=== PATIENT | female | born 1990 | race Caucasian/White ===

== ENCOUNTER 2020-11-06 08:06 | Outpatient (REF) | payer OTHER, SELFPAY ==
[2020-11-06 10:41] LABS: MANUAL DIFF FLAG NO
[2020-11-06 10:48] LABS: Basophils Absolute Auto 0.1 X10*3/uL (0.0-0.2); Eosinophils Absolute Auto 0.2 X10*3/uL (0.0-0.4); Eosinophils Percent Auto 1.9 % (0-4); Hematocrit 39.1 % (37-47); Hemoglobin 12.7 g/dl (12.0-16.0); Imm Gran Abs Auto 0.02 X10*3/uL (0.00-0.03); Imm Gran Pct Auto 0.3 % (0.0-0.4); Lymphocytes Absolute Auto 2.9 X10*3/uL (1.2-4.9); Lymphocytes Percent Auto 37.4 % (20-40); Mean Corpuscular HGB Conc 32.5 g/dl (31.0-35.0); Mean Corpuscular Hemoglobin 30.6 pg (27.0-33.0); Mean Corpuscular Volume 94.2 fL (80-98); Mean Platelet Volume 11.9 fL (9.4-12.3); Monocytes Absolute Auto 0.5 X10*3/uL (0.1-1.2); Monocytes Percent Auto 6.9 % (2-11); Neutrophils Absolute Auto 4.1 X10*3/uL (2.0-8.3); Neutrophils Percent Auto 52.5 % (45-73); Platelet Count 182 X10*3/uL (160-400); Red Blood Count 4.15 X10*6/uL (4.20-5.50); Red Cell Distribution Width 12.7 % (11.0-16.0); White Blood Count 7.7 X10*3/uL (4.8-10.8)
[2020-11-06 11:09] LABS: Glucose Urine UA NEG (NEG); Leukocyte Esterase Urine NEG (NEG); Nitrite Urine NEG (NEG); Specific Gravity - Urine 1.025 (1.005-1.025); Urine Blood NEG (NEG); Urine Ketones NEG (NEG); Urine Protein NEG (NEG-TRACE)
[2020-11-06 11:19] LABS: Appearance Urine HAZY; Color Urine YELLOW
[2020-11-06 11:30] LABS: TSH reflex Free T4 1.45 mIU/mL (0.32-4.0)
[2020-11-06 11:34] LABS: Alanine Aminotransferase 14 U/L (0-31); Albumin Level 4.5 g/dL (3.5-5.0); Alkaline Phosphatase 40 U/L (39-117); Anion Gap 11 (12-20); Aspartate Amino Transferase 17 U/L (5-31); Bilirubin Total 0.4 mg/dL (0.0-1.0); Blood Urea Nitrogen 9 mg/dL (9-16); Calcium 9.4 mg/dL (8.4-10.2); Carbon Dioxide 29 mmol/L (22-29); Chloride 105 mmol/L (96-108); Cholesterol 198 mg/dL; Estimated Glomerular Filt Rate > 60; Glucose Fasting 92 mg/dL (60-99); HDL Cholesterol 83 mg/dL; LDL Cholesterol Calculated 107 mg/dl; Potassium 4.3 mmol/l (3.3-5.1); Sodium 141 mmol/L (135-145); Total Protein 7.4 g/dL (6.5-8.0); Triglycerides 40 mg/dL
== END 2020-11-06 08:07 | disposition home or self-care (01) ==
LOC: HO.WFDLDS 08:06
PROVIDERS: Visit Provider Family Medicine
DX: Z00.00 Encounter for general adult medical examination without abnormal findings (principal); Z86.2 Personal history of diseases of the blood and blood-forming organs and certain disorders involving the immune mechanism
CPT/HCPCS: 36415; 80053; 80061; 81003; 84443; 85025

== ENCOUNTER 2020-11-16 09:55 | Outpatient (REF) | payer OTHER, SELFPAY ==
[2020-11-20 23:42] LABS: HPV mRNA E6/E7 Not Detected (Not Detected)
== END 2020-11-16 09:56 | disposition home or self-care (01) ==
LOC: HO.LAB 09:55
PROVIDERS: PCP Family Medicine; Visit Provider Advanced Practice Midwife
DX: Z01.419 Encounter for gynecological examination (general) (routine) without abnormal findings (principal); Z20.2 Contact with and (suspected) exposure to infections with a predominantly sexual mode of transmission
CPT/HCPCS: 36415; 87624; 87625; 88141; 88142

== ENCOUNTER → 2021-11-19 08:09 | Outpatient (BNVA) | payer OTHER, SELFPAY | PROVIDERS: PCP Family Medicine; Visit Provider Advanced Practice Midwife ==

== ENCOUNTER 2021-12-03 07:57 | Outpatient (REF) | payer OTHER, SELFPAY ==
[2021-12-03 11:29] LABS: MANUAL DIFF FLAG NO
[2021-12-03 11:41] LABS: Basophils Absolute Auto 0.1 X10*3/uL (0.0-0.2); Basophils Percent Auto 1.1 % (0-2); Eosinophils Absolute Auto 0.2 X10*3/uL (0.0-0.4); Eosinophils Percent Auto 1.9 % (0-4); Hematocrit 38.4 % (37.0-47.0); Hemoglobin 12.6 g/dl (12.0-16.0); Imm Gran Abs Auto 0.02 X10*3/uL (0.00-0.03); Imm Gran Pct Auto 0.2 % (0.0-0.4); Lymphocytes Absolute Auto 3.4 X10*3/uL (1.2-4.9); Lymphocytes Percent Auto 41.2 % (20-40); Mean Corpuscular HGB Conc 32.8 g/dl (31.0-35.0); Mean Corpuscular Hemoglobin 30.4 pg (27.0-33.0); Mean Corpuscular Volume 92.8 fL (80.0-98.0); Mean Platelet Volume 11.4 fL (9.4-12.3); Monocytes Absolute Auto 0.6 X10*3/uL (0.1-1.2); Monocytes Percent Auto 6.6 % (2-11); Neutrophils Absolute Auto 4.1 x10*3/uL (2.0-8.3); Platelet Count 207 X10*3/uL (160-400); Red Blood Count 4.14 X10*6/uL (4.20-5.50); Red Cell Distribution Width 12.7 % (11.0-16.0); White Blood Count 8.3 X10*3/uL (4.8-10.8)
[2021-12-03 11:53] LABS: Alanine Aminotransferase 14 U/L (0-31); Albumin Level 4.5 g/dL (3.5-5.0); Alkaline Phosphatase 39 U/L (39-117); Anion Gap 12 (12-20); Aspartate Amino Transferase 16 U/L (5-31); Bilirubin Total 0.8 mg/dL (0.0-1.0); Blood Urea Nitrogen 11 mg/dL (9-16); Calcium 9.8 mg/dL (8.4-10.2); Carbon Dioxide 28 mmol/L (22-29); Chloride 103 mmol/L (96-108); Cholesterol 201 mg/dL; Estimated Glomerular Filt Rate > 60; Glucose Fasting 90 mg/dL (60-99); HDL Cholesterol 74 mg/dL; LDL Cholesterol Calculated 112 mg/dl; Potassium 4.3 mmol/L (3.3-5.1); Sodium 139 mmol/L (135-145); Total Protein 7.6 g/dL (6.5-8.0); Triglycerides 76 mg/dL
[2021-12-03 12:01] LABS: Appearance Urine HAZY; Color Urine YELLOW; Glucose Urine UA NEG (NEG); Leukocyte Esterase Urine NEG (NEG); Nitrite Urine NEG (NEG); PH 5.5 (5.0-8.0); Specific Gravity - Urine >= 1.030 (1.005-1.025); Urine Blood TRACE (NEG); Urine Ketones NEG (NEG); Urine Protein 1+ MG/DL (NEG-TRACE)
[2021-12-03 12:23] LABS: TSH reflex Free T4 1.69 uIU/mL (0.32-4.0)
[2021-12-03 12:38] LABS: RBC Urine 0-2 /HPF (0); Squamous Epithelial Cell Urine 2+ /LPF; WBC Urine 0 /HPF (0-4)
[2021-12-03 12:39] LABS: Bacteria Urine 2+ /LPF
== END 2021-12-03 07:58 | disposition home or self-care (01) ==
LOC: HO.WFDLDS 07:57
PROVIDERS: Visit Provider Family Medicine
DX: Z00.00 Encounter for general adult medical examination without abnormal findings (principal)
CPT/HCPCS: 36415; 80053; 80061; 81001; 81003; 84443; 85025

== ENCOUNTER 2022-11-24 13:00 | Outpatient (REF) | payer OTHER, SELFPAY ==
[2022-11-27 00:39] LABS: HPV mRNA E6/E7 rflx Not Detected (Not Detected)
== END 2022-11-24 13:01 | disposition home or self-care (01) ==
LOC: HO.LNP 13:00
PROVIDERS: PCP Family Medicine; Visit Provider Advanced Practice Midwife
DX: Z01.419 Encounter for gynecological examination (general) (routine) without abnormal findings (principal); N64.4 Mastodynia; N39.3 Stress incontinence (female) (male)
CPT/HCPCS: 87624; 88142

== ENCOUNTER 2023-12-11 13:08 | Outpatient (AMB) | payer OTHER, SELFPAY ==
--- NOTE | 2023-12-11 13:10 | A.OFFVIS_ITS ---
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 Doing well with concerns: left breast pain x 6 months, deep in the 03:00 position. Denies any injury to the area, or any other surgery to the left breast. She tries to eat healthy and stays active with exercise. In active . Regular monthly menses. Currently is sexually active with , vasectomy as form of control. She denies vaginal itching and irritation. Family history of breast cancer maternal grandmother and mother. Last pap smear 2022, negative. [facility] Medical History FH: breast cancer in first degree relative Hypotension Surgical History No pertinent past surgical history Family History Maternal Grandmother Breast CA Mother Breast CA Social History Housing: House Alcohol intake: current Patient Tobacco Use Status: Never used Tobacco e-Cigarette/Vaping Use: Never Used Second Hand Smoke Exposure: No service: Yes Current occupational status: employed Current occupation: [employer] Cognitive needs: No Hearing needs: No Vision needs: No Female Reproductive History Menstrual Age of Menarche: 17 Date of last menstrual period: 12/11/23 control method: permanent sterilization and other (partner has a vasectomy) Total pregnancies: 3 Full term: 3 Number of Living Children: 3 Date of last pap smear: 11/25/22 Review of Systems Const All systems reviewed & are unremarkable except as noted in HPI and below Reports as per HPI Eyes Reports no additional complaints ENT Reports no additional complaints Card Reports no additional complaints Resp Reports no additional complaints GI Reports as per HPI and Reports no additional complaints Reports as per HPI Musc Reports no additional complaints Skin/Breast Reports as per HPI Neuro Reports no additional complaints Psych Reports no additional complaints Endo Reports no additional complaints Matt/Lymph Reports no additional complaints Aller/Immun Reports no additional complaints Physical Exam Vital Signs: Last Vital Signs BP 106/54 L 12/11/23 13:14 BMI result Body Mass Index 19.0 Const General: cooperative, healthy appearing, no acute distress, well developed and alert Orientation/consciousness: patient oriented x3 HEENT Head: Yes normal to inspection Eyes General: appearance normal, both eyes and all related structures Neck Neck: Yes normal visual inspection Thyroid: Thyroid normal Chest Other: Slight asymmetry left breast is larger patient reports that is her norm. Chest palpation & inspection: normal inspection of the chest and other (no puckering, dimpling, peau de orange, retraction, discharge, masses) Breast/axilla inspection: normal inspection of the breasts Breast/axilla palpation: normal palpation of the breasts Resp Effort & Inspection: normal respiratory effort GI Inspection: Yes normal to inspection Palpation (GI): Soft to palpation Rectal Exam - Female: deferred General: Yes bladder normal to palpation External Female Exam: normal external appearance and normal appearance of the urethra Speculum Exam - Vagina: normal appearance of the vagina, normal palpation, normal vaginal discharge, vaginal bleeding and other (Tampon in place on left side) Speculum Exam - Cervix: normal appearance of the cervix and normal palpation Bimanual exam- vagina & uterus: normal bimanual exam, normal palpation, uterine size normal, bladder normal to palpation, normal palpation and non-tender Bimanual Exam- Adnexa, other: no masses OB/external & speculum: vaginal bleeding Skin General skin exam: no rashes or lesions noted Rashes: no rashes Neuro General: patient oriented x3 Cognition (Neuro): normal cognition Extrem General: Yes normal to inspection Psych Attitude: cooperative Thought process: Normal thought process present Assessment & Plan Assessment & Plan (1) Encounter for well woman exam with routine gynecological exam: Code(s): Z01.419 - Encounter for gynecological examination (general) (routine) without abnormal findings (2) Breast pain, left: Code(s): N64.4 - Mastodynia Plan Discussed: Current recommendations for pap smears per ASCCP guidelines. Breast awareness and periodic breast exams. Plan left breast ultrasound and bilateral diagnostic mammogram. Follow-up office to discuss test results. If biopsy or further evaluation is needed radiology department will reach out for further appointments. If she is any questions or concerns she can call here to discuss them. Maintain a healthy lifestyle including a well balanced diet and routine exercise. Patient verbalizes understanding and agrees to the plan of care. She was given opportunity to ask questions and all questions were answered to the best of my ability. 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 This note is constructed using voice recognition software. While every effort has been made to ensure accuracy, security dispatcher errors may have been included. Orders: Orders MM tomosynthesis diagnostic BI Today N64.4 - Mastodynia, Z12.31 - Encounter for screening mammogram for malignant neoplasm of breast US breast LT complete Today N64.4 - Mastodynia Coding Level of Care Code Est Pt Prev Care 18-39y(42189) Diagnoses Encounter for well woman exam with routine gynecological exam Z01.419 Breast pain, left N64.4
[2023-12-11 13:14] VITALS: BP 106/54; BMI 19.0
== END 2023-12-11 13:52 | disposition home or self-care (01) ==
PROVIDERS: PCP Family Medicine; Visit Provider Advanced Practice Midwife
DX: Z01.419 Encounter for gynecological examination (general) (routine) without abnormal findings (principal); N64.4 Mastodynia
CPT/HCPCS: 99395

== ENCOUNTER → 2023-12-11 13:08 | Outpatient (BNVA) | payer OTHER, SELFPAY | PROVIDERS: PCP Family Medicine; Visit Provider Advanced Practice Midwife ==

== ENCOUNTER 2024-01-08 08:34 | Outpatient (REF) | payer OTHER, SELFPAY ==
--- NOTE | ~2024-01-08 | MM_ITS ---
EXAMINATION: MM DIAGNOSTIC DIGITAL BREAST TOMOSYNTHESIS, BILATERAL US BREAST LIMITED, LEFT MAMMOGRAPHY: CLINICAL INFORMATION: 33-year-old female complaining of left breast pain 3:00 axis, mid to posterior one third. COMPARISON: Mammography: None. Baseline exam. TECHNIQUE: Digital breast tomosynthesis is performed in both the craniocaudal and mediolateral oblique views along with computer-aided detection (CAD). Synthesized 2D images are generated from the tomosynthesis. A second full-field right MLO was provided for improved anterior compression. FINDINGS: The breasts are extremely dense, which lowers the sensitivity of mammography (ACR BI-RADS breast composition Category d). There are no significant masses, abnormal calcifications, or other abnormalities. The area of pain in the left breast 3:00 axis has been marked by the technologist. There is no definite underlying mass or other abnormality which can be distinguished from the extremely dense breast parenchyma. There is no skin or axillary abnormality. ULTRASOUND: CLINICAL INFORMATION: Pain left breast 3:00 axis. COMPARISON: None TECHNIQUE: Targeted sonographic evaluation was performed using a high frequency linear transducer. Attention was given to the upper outer quadrant of the left breast. Selected archived documentation. FINDINGS: LEFT BREAST: There is extremely dense breast parenchyma noted. No suspicious mass is seen. There is no pathologic acoustic shadowing. No cystic abnormalities. No ultrasonographic correlate to the region of left breast pain is identified. MM/MM tomosynthesis diagnostic BI IMPRESSION: There are no findings in either breast suspicious for malignancy. Region of left breast pain 3:00 axis shows no mammographic or ultrasonographic correlate. Recommend clinical management. OVERALL ASSESSMENT: Mammography: BI-RADS 1 - Negative Ultrasound: BI-RADS 1 - Negative RECOMMENDATION: 1. Patient should be managed based on the clinical impression. 2. Otherwise, routine annual screening mammography beginning at age 40. Results were provided to the patient at time of visit by the technologist.
== END 2024-01-08 08:35 | disposition home or self-care (01) ==
LOC: HO.MAMMO 08:34
PROVIDERS: PCP Family Medicine; Visit Provider Advanced Practice Midwife
DX: N64.4 Mastodynia (principal)
CPT/HCPCS: 76642; 77062; 77066

== ENCOUNTER → 2024-01-08 08:37 | Outpatient (BNV) | payer OTHER, SELFPAY | PROVIDERS: PCP Family Medicine; Visit Provider Radiology Diagnostic Radiology | DX: N64.4 Mastodynia (principal) | CPT/HCPCS: 76642; 77062; 77066 ==

== ENCOUNTER 2024-11-25 15:43 | Outpatient (AMB) | payer OTHER, SELFPAY ==
--- OUTSIDE RECORDS SUMMARY | 2024-11-25 15:46 | XMS_ITS | Encounter Summary ---
Author Organization [facility] Address [address] [place] [address] Phone Care Team Providers Care Scheme Technician Name Role Phone Mike Rodas MD Primary Care Provider [phone] Encounter Details Date Type Department Care Team (Late st Contact Info) Description 10/11/2012 Documentation [facility] [place] Family Medicine [address] [place], [place] [id number] Family Medicine, Physician [address], [place] [phone] Social History Tobacco Use Types Packs/Day Years Used Date Smoking Tobacco: Never Assessed Comments Unknown Sex and Gender Information Value Date Recorded Sex Assigned at Not on file Legal Sex Female 4:43 PM EDT Gender Identity Not on file Sexual Orientation Not on file documented as of this encounter Plan of Treatment Not on file documented as of this encounter Visit Diagnoses Not on filedocumented in this encounter Care Teams Scheme Technician Relationship Specialty Start Date End Date Mike Rodas MD [address] [place] [address] PCP - General 06/05/17 12/17/22 documented as of this encounter
--- OUTSIDE RECORDS SUMMARY | 2024-11-25 15:46 | XMS_ITS | Continuity of Care Document ---
Author Name [facility] Organization [facility] Care Team Providers Care Slope Hoist Operator Name Role Phone [facility] Unavailable Unavailable Medications Combined list of outpatient medications from Department of Defense and Veterans Affairs facilities.Medications provided include 1) outpatient medications from the last 15 months, and 2) patient-reported medications. Medication Details Route Status Patient Instructions Prescription Expires Prescription Number Last Dispense Date Ordering Provider Order Date Order Qty Source betamethaso ne dipropionat e 0.05% topical cream betameth asone dipropio arcenio 0.05% topical cream Start Date: 04/11/21 Status: Ordered Ordered No Facilit y Access chlorhexidi ne 0.12% mucous membrane liquid chlorhex idine 0.12% mucous membrane liquid Start Date: 11/02/20 Status: Ordered Ordered No Facilit y Access doxycycline 20 mg oral tablet 0 total refill(s ) Ordered No Facilit y Access predniSONE 10 mg oral tablet predniSO NE 10 mg oral tablet Start Date: 04/11/21 Status: Ordered Ordered No Facilit y Access valACYclovi r 500 mg oral tablet 3 total refill(s ) Ordered No Facilit y Access Allergies, Adverse Reactions, Alerts Combined list of allergies from Department of Defense and Veterans Affairs facilities. It does not include entries that were removed or entered in error. Substance Category Reaction Severity Reaction type Status Date Reported Comments Source Unable to obtain Allergy to substance Unknown Unknown Active 8203R-10 4 MDG Immunizations Combined list of available immunizations from the Department of Defense and Veterans Affairs facilities. 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 Status Comments Source influenza virus vaccine, inactivated 2023 ENRICO Kwon amado, left (delt oid) [id number] [employer] complet ed influenza virus vaccine, inactivat ed 08/28/24 Given 8203R-1 04 MDG influenza, injectable, quadrivalent, contains preservative 1 2020 [id number] 158 SmithKline (SKB) complet ed influenza , injectabl e, quadrival ent, contains preservat teresa DoD COVID Vaccine Pfizer 2020 [id number] 208 PFIZER complet ed COVID Vaccine Pfizer 08/11/21 Given Ambulat ory Pharmac y SARS-COV-2 (COVID-19) vaccine, mRNA, spike protein, LNP, preservative free, 30 mcg/0.3mL dose 2 2020 [id number] 208 Pfizer, Inc (PFR) complet ed SARS-COV- 2 (COVID-19 ) vaccine, mRNA, spike protein, LNP, preservat teresa free, 30 mcg/0.3mL dose DoD COVID Vaccine Pfizer 2020 [id number] 208 PFIZER complet ed COVID Vaccine [facility] 07/14/21 Given Ambulat ory Pharmac y SARS-COV-2 (COVID-19) vaccine, mRNA, spike protein, LNP, preservative free, 30 mcg/0.3mL dose 1 2020 [id number] 208 Pfizer, Inc (PFR) complet ed SARS-COV- 2 (COVID-19 ) vaccine, mRNA, spike protein, LNP, preservat teresa free, 30 mcg/0.3mL dose DoD hepatitis A adult vaccine 2020 [id number] 52 GlaxoSmithKli ne complet ed hepatitis A adult vaccine 03/07/21 Given Ambulat ory Pharmac y hepatitis A vaccine, adult dosage 2 2020 [id number] 52 SmithKline (SKB) complet ed hepatitis A vaccine, adult dosage [facility] influenza, injectable, quadrivalent- pf 2019 [id number] 150 Seqirus complet ed influenza , injectabl e, quadrival ent-pf 09/04/20 Given Ambulat ory Pharmac y Influenza, injectable, quadrivalent, preservative free 1 2019 [id number] 150 Seqirus (SEQ) complet ed Influenza , injectabl e, quadrival ent, preservat teresa free [facility] adenovirus vaccine, live 2019 [id number] 143 Teva Pharmaceutica ls complet ed adenoviru s vaccine, live 07/25/20 Given Ambulat ory Pharmac y hepatitis A adult vaccine 2019 Body, whole [id number] 52 GlaxoSmithKli ne complet ed hepatitis A adult vaccine 07/25/20 Given Ambulat ory Pharmac y hepatitis A vaccine, adult dosage 1 2019 DONNA STRONG [id number] 52 [facility] (SKB) complet ed hepatitis A vaccine, adult dosage DoD Adenovirus, type 4 and type 7, live, oral 1 2019 [id number] 143 [facility] ([facility]) complet ed Adenoviru s, type 4 and type 7, live, oral DoD tetanus, diphtheria, acellular pertu is 2019 [id number] 115 [employer] complet ed tetanus, diphtheri a, acellular pertussis 07/19/20 Given Ambulat ory Pharmac y meningococcal A,C,Y,W-135 (MCV4P) 2019 [id number] 114 sanofi pasteur complet ed meningoco ccal A,C,Y,W-1 35 (MCV4P) 07/19/20 Given Ambulat ory Pharmac y poliovirus vaccine, inactivated 2019 [id number] 10 sanofi pasteur complet ed polioviru s vaccine, inactivat ed 07/19/20 Given Ambulat ory Pharmac y poliovirus vaccine, inactivated 1 2019 [id number] 10 Sanofi Pasteur (PMC) complet ed polioviru s vaccine, inactivat ed DoD meningococcal polysaccharid e (groups A, C, Y and W-135) diphtheria toxoid conjugate vaccine (MCV4P) 1 2019 [id number] 114 Sanofi Pasteur (PMC) complet ed meningoco ccal polysacch aride (groups A, C, Y and W-135) diphtheri a toxoid conjugate vaccine (MCV4P) DoD tetanus toxoid, reduced diphtheria toxoid, and acellular pertu is vaccine, adsorbed 1 2019 [id number] 115 [facility] ed tetanus toxoid, reduced diphtheri a toxoid, and acellular pertussis vaccine, adsorbed DoD measles virus vaccine 0 2019 05 () Not Given measles virus vaccine DoD rubella virus vaccine 0 2019 06 () Not Given rubella virus vaccine DoD mumps virus vaccine 0 2019 07 () Not Given mumps virus vaccine DoD varicella virus vaccine 0 2019 21 () Not Given varicella virus vaccine DoD hepatitis B vaccine, unspecified formulation 0 2019 45 () Not Given hepatitis B vaccine, unspecifi ed formulati on DoD Results Combined list of recent chemistry, hematology and other laboratory results from Department of Defense and Veterans Affairs, ranging from 15 months to all on record, depending upon the facility. Order Name Results Value Reference Range Date Interpretation Specimen Comments Source Infectio us Disease HIV-1/O/2 Non-Reac tive 1 (01/26/24 1:30 PM) 01/25 N Interpretiv e Data: INTERPRETAT ION: This method is a screening procedure for the detection of HIV p24 Antigen and Antibodies to HIV-1, including Group O, and/or HIV-2. NON-REACTIV E: HIV-1 antigen and HIV-1 / HIV-2 antibodies were not detected. No laboratory evidence of HIV infection. A negative test result does not exclude the possibility of exposure to or infection with HIV. HIV antibodies and/or p24 antigen may be undetectabl e in some stages of the infection and in some clinical conditions. If acute HIV infection is suspected, consider submitting another specimen to a reference laboratory for HIV-1 RNA. SCREEN REACTIVE - CONFIRMATIO N TO FOLLOW: Possible presence of HIV-1antibo dies, HIV-2 antibodies and/or HIV-1 p24 antigen. Specimen will reflex to the confirmatio n testing that fulfills the Center for Disease Control and Prevention' s HIV diagnostic algorithm. Refer to [facility] Lab Guide for additional information : [email or web address]. [facility]/ [email or web address] ab/[email or web address]/la b_[email or web address] x Testing performed by [facility] [place]. [facility] Deonnacella candis Sendouts Repository Sample Received (01/26/24 1:30 PM) 01/25 N Ambulator y Pharmacy Vital Signs Combined list of inpatient and outpatient Vital Signs from Department of Defense and Veterans Affairs, ranging from 12 months to all on record, depending upon the facility. Vital Sign Value Date Comments Source No data available for this section Ambulatory Pharmacy Encounters Combined list of: 1) Encounters from Department of Veterans Affairs facilities going back up to thelast 18 months. 2) Encounters from the Department of Defense facilities going back up to 280 months. Location Location Details Encounter Type Encounter Number Reason For Visit Attending Provider ADM Date DC Date Status Disposition [place] [address](Opt ometry Clinic BMT [facility]) OUTPATIENT [id number] MANDY NATH 07/25 Released w/o Limitations [facility] [place] [address](O ptometr y Clinic [facility]) [place] [address](All ergy, [facility]) OUTPATIENT [id number] Notes Entered by: DONNA STRONG 25 Jul 2020 1443 ------- ------- ------- ------- -- TVMANUEL KAUR 07/25 Released w/o Limitations [facility] [place] [address](A llergy, [facility]) [place] [address]([facility]) OUTPATIENT [id number] Notes Entered by: АННА PINZON 31 Jul 2020 1036 ------- ------- ------- ------- -- JAYDEN King 07/31 Released w/o Limitations [facility] [place] [address]([facility] d) [place] [address](AFN G [address]) OUTPATIENT [id number] Notes Entered by: SORAYA ROSA 15 Oct 2021 0858 ------- ------- ------- ------- -- CHERYL/SORAYA BANERJEE 10/15 [facility] [place] [address](A FNG [address]) [place] [address](AFN G [address]) TELE CONSULT [id number] SORAYA ROSA 11/06 [facility] [place] [address](A FNG [address]) [place] [address](AFN G [address]) OUTPATIENT [id number] Notes Entered by: SEPIDEH TSE 08 Jan 2022 1505 ------- ------- ------- ------- -- Post-CONNOR Franz 01/08 Released w/o Limitations [facility] [place] [address](A FNG [address]) [place] [address](AFN G [address]) OUTPATIENT [id number] Notes Entered by: SORAYA ROSA 06 Apr 2022 1410 ------- ------- ------- ------- -- KASH3 SORAYA ROSA 04/06 Released w/o Limitations [facility] [place] [address](A FNG [address]FM) 8203R-104 MDG Outpatient [id number] KIKI RUBIN 01/25 Discharge Disposition: Home or Self Care 8203R-1 04 MDG 8203R-104 MDG Care Not Rendered [id number] 03/17 Discharge Disposition: Home or Self Care 8203R-1 04 MDG 8203R-104 MDG Mass Vaccine [id number] 08/28 Discharge Disposition: Home or Self Care 8203R-1 04 MDG 8203R-104 MDG Mass Vaccine [id number] 08/30 8203R-1 04 MDG Procedures Combined list of: 1) Procedures from Department of Veterans Affairs facilities going back up to thelast 18 months, not all VA non-surgical procedures are included; 2) All procedures from the Department of Defense facilities. Procedure Procedure Type Code Date Perfomer Comments Sourc e No data available for this section Ambulato ry Pharmacy THERAPEUTIC, PROPHYLACTIC, OR DIAGNOSTIC INJECTION (SPECIFY SUBSTANCE OR DRUG); SUBCUTANEOUS OR INTRAMUSCULAR 07/31/20 20 DoD SCREENING TEST OF VISUAL ACUITY, QUANTITATIVE, BILATERAL 07/25/20 20 DoD Screening Test Of Visual Acuity, Quantitative, Bilateral Screening Test Of Visual Acuity, Quantitative, Bilateral [id number] MANDY NATH [facility] Hepatitis A Vaccine Adult Dosage (Intramuscular Use) Hepatitis A Vaccine Adult Dosage (Intramuscular Use) 86672 DONNA STRONG Hep A (Adult); Series #: 1; 1.0 mL; IM; Unknown; Mfg: [employer]; Lot: [id number]; VIS given (Kendall: 05/22/2020). DoD Immunization Administration By Injection, One Vaccine Immunization Administration By Injection, One Vaccine 15878 DONNA STRONG DoD Physician Supervised Injection Intramuscular Physician Supervised Injection Intramuscular 08097 АННА PINZON [facility] Social History Combined list of available smoking, tobacco, and other social history from Department of Defense and Veterans Affairs facilities. Social History Type Response Date Comment Sour e This section is an empty social history section. [facility] Assessment and Plan Combined list of future care activities from Department of Defense and Veterans Affairs facilities (e.g., assessment and plan notes, appointments, orders, and referrals). Additional future care activities may be listed in the Plan of Care section. Result Assessment and Plan Date Source Assessment and Plan No data available for this section 11/25/2024 Ambulatory Pharmacy Functional Status Combined list of recent functional and cognitive assessments recorded at Department of Defense and Veterans Affairs (VA).VA Functional [place] Measurement (FIM) Scale: 1 = Total Assistance (Subject = 0% +), 2 = Maximal Assistance (Subject = 25% +), 3 = Moderate Assistance (Subject = 50% +), 4 = Minimal Assistance (Subject = 75% +), 5 = Supervision, 6 = Modified [place] (Device), 7 = Complete [place] (Timely, Safely). Assessment Date/Time Source Assessment Type Assessment Skill Assessment Score Assessment Details No data available for this section
--- OUTSIDE RECORDS SUMMARY | 2024-11-25 15:46 | XMS_ITS | Encounter Summary ---
Author Organization [facility] Address [address] [place] [address] Phone Care Team Providers Care Navy Material Inspector Name Role Phone Mike Rodas MD Primary Care Provider [phone] Encounter Details Date Type Department Care Team (Late st Contact Info) Description 09/10/2012 Documentation [facility] [place] Family Medicine [address] [place], [place] [phone] Family Medicine, Physician [address], [place] [phone] Social History Tobacco Use Types Packs/Day Years [...] on filedocumented in this encounter Care Teams Navy Material Inspector Relationship Specialty Start Date End Date Mike Rodas MD [address] [facility] [address] PCP - General 06/05/17 12/17/22 documented as of this encounter
--- NOTE | 2024-11-25 16:00 | A.OFFPC_ITS ---
Vital Signs 11/25/24 16:07 Height 5 ft 6 in Weight 110 lb BMI 17.8 BP 104/60 Blood Pressure Location Lt brachial Position Sitting Respiration 14 Pulse 76 Pulse Source Pulse Oximeter Temp 98.1 F Temp Source Oral Pulse Oximetry (%) 100 Oxygen Delivery Method Room Air Intake Visit Reasons: Physical Exam Intake Note: physical exam Is last menstrual period known: Yes Last menstrual period: 11/16/24 Post menopausal: No Patient : No Allergies latex [LATEX] Allergy (Unknown, Verified 11/25/24 16:02) UNKNOWN poison triston Allergy (Intermediate, Uncoded 12/11/23 13:16) rash Medication List - Last Reconciled 11/25/24 by Jaquan Hendrickson MD valacyclovir 500 mg PO Q12H 10 days Tobacco use date assessed: 11/25/24 Dental Screening Dental Screen Date: 11/25/24 Did you have a dental visit in the last 12 months?: Yes Did you have a dental problem in the last 6 months where you did not have access to dental care?: No HPI Physical Exam HPI Details 34 y/o female presents for a CPE with f/ u labs and health maintenance. No recent labs to review. Has complaints of bunions bilaterally feet. She reports L ear discomfort/pain. She reports vision changes. [facility]LY [facility] Medical History Gum disease FH: breast cancer in first degree relative Hypotension Surgical History No pertinent past surgical history Family History Maternal Grandmother Breast CA Mother Breast CA Social History Housing: House Alcohol intake: current Patient Tobacco Use Status: Never used Tobacco e-Cigarette/Vaping Use: Never Used Second Hand Smoke Exposure: No Patient : No service: Yes Current occupational status: employed Current occupation: [employer] Cognitive needs: No Hearing needs: No Vision needs: No Female Reproductive History Menstrual Age of Menarche: 17 Date of last menstrual period: 11/16/24 Questionnaire PHQ-9 Over the last 2 weeks, how often have you been bothered by any of the following problems? 1. Little interest or pleasure in doing things: not at all 2. Feeling down, depressed, or hopeless: not at all 3. Trouble falling or staying asleep, or sleeping too much: not at all 4. Feeling tired or having little energy: not at all 5. Poor appetite or overeating: not at all 6. Feeling bad about yourself - or that you are a failure or have let yourself or your family down: not at all 7. Trouble concentrating on things, such as reading the newspaper or watching television: not at all 8. Moving or speaking so slowly that other people could have noticed. Or the opposite - being so fidgety or restless that you have been moving around a lot more than usual: not at all 9. Thoughts that you would be better off or of hurting yourself in some way: not at all Total score: 0 Depression Screening Interpretation: Negative Depression Screening Done: Yes 99520 - PHQ-9 Billing: Yes Source: Developed by Drs. Gorge Larios, Margarita Hall, Luciano Capps and colleagues, with an educational david from [employer]. Thrive Questionnaire Date Thrive assessed: 11/25/24 I am a: Patient What is your living situation today?: I have a steady place to live Within the past 12 months, did the food you bought not last and you didn't have the money to get more?: Never true Within the past 12 months, did you worry whether your food would run out before you got money to buy more?: Never true Do you have trouble paying for medicines?: No Do you have trouble getting transportation to medical appointments?: No Do you have trouble paying your heating and electricity bill?: No Do you have trouble taking care of your child, family member or friend?: No Do you have trouble with day-to-day activities such as bathing, preparing meals, shopping, managing finances, etc.?: No Are you currently unemployed and looking for a job?: No Are you interested in more education?: No Please select the resources that you would like help with: None Currently or been in a relationship where the following occur: No concerns reported THRIVE Score: 0 AUDIT C Alcohol Use Questionnaire (AUDIT-C) 1. How often do you have a drink containing alcohol?: Never 3. How often do you have six or more drinks on one occasion?: Never Total Score: 0 Score Reviewed/Action Taken: Yes EDE-7 AMB Questionnaire EDE-7 Date EDE - 7 assessed: 11/25/24 Feeling nervous, anxious, or on edge: 0 = Not at all Not being able to stop or control worryin = Not at all Worrying too much about different things: 0 = Not at all Trouble relaxin = Not at all Being so restless that it is hard to sit still: 0 = Not at all Becoming easily annoyed or irritable: 0 = Not at all Feeling afraid as if something awful might happen: 0 = Not at all Total EDE-7 score (0-4 normal; 5-9 mild; 10-14 moderate; 15-21 severe): 0 Source: Developed by Drs. Gorge Larios, Margarita Hall, Luciano Capps and colleagues, with an educational david from [employer]. Review of Systems Const Denies chills, Denies fatigue, Denies fever(s), Denies headache(s) and Denies weakness Eyes Denies change in vision ENT Denies dizziness, Denies headache(s), Denies hearing loss, Denies nasal congestion, Denies sinus pain, Denies sinus pressure and Denies sore throat Card Denies chest pain, Denies lightheadedness, Denies dyspnea and Denies other (palpitations) Resp Denies cough, Denies dyspnea and Denies wheezing GI Denies abdominal pain, Denies melena, Denies hematochezia, Denies change in bowel habits, Denies dyspepsia and Denies nausea Denies hematuria and Denies dysuria Musc Denies abnormal gait, Denies myalgias, Denies arthralgias, Denies numbness and Denies tingling Skin/Breast Denies rash, Denies unusual bruising and Denies wounds Neuro Denies abnormal gait, Denies dizziness, Denies headache(s), Denies memory loss, Denies numbness, Denies Sensory deficit (Neuro), Denies tingling and Denies weakness Psych Denies anxiety, Denies depression and Denies memory loss Endo Denies cold intolerance, Denies fatigue, Denies heat intolerance, Denies polydipsia and Denies polyuria Matt/Lymph Denies easy bleeding and Denies easy bruising Aller/Immun Denies wheezing Physical exam (Primary Care) Vital Signs: Last Vital Signs Temp 98.1 F 11/25/24 16:07 Pulse 76 11/25/24 16:07 Resp 14 11/25/24 16:07 BP 104/60 11/25/24 16:07 Pulse Ox 100 11/25/24 16:07 Oxygen Delivery Method Room Air 11/25/24 16:07 BMI result Body Mass Index 17.8 Tobacco/Smoking Status: Tobacco use Status Tobacco use date assessed 11/25/24 11/25/24 16:11 Patient Tobacco Use Status Never used Tobacco 11/25/24 16:11 e-Cigarette/Vaping Use Never Used 11/25/24 16:11 PHQ-9: PHQ-9 Score PHQ-9: Total score 0 11/25/24 16:11 Depression Screening Interpretation: Negative Thrive Assessment: Date of Thrive Assessment Date Thrive assessed 11/25/24 11/25/24 16:11 Currently or been in a relationship where the following occur: No concerns reported Const General: no acute distress, well developed, alert and awake Nutritional Appearance: well nourished Orientation/consciousness: patient oriented x3 HENMT Head: Yes normocephalic and Yes atraumatic Ears: hearing grossly normal bilaterally and TM's normal bilaterally General nose exam: Normal external nose present and Normal nares present Mouth: Normal oral and palatal mucosa present and moist mucous membranes Teeth and gingiva: dentition normal Throat: Yes posterior oropharynx normal Eyes General: appearance normal, both eyes and all related structures Pupils: Equal, round and reactive pupils present and Pupil accommodation reflex normal EOM: EOMs intact bilaterally Neck Neck: Yes normal visual inspection, Yes no lymphadenopathy and Yes trachea midline Thyroid: Thyroid normal Carotids: no bruits Lymphatic: no lymphadenopathy noted Chest Chest palpation & inspection: normal inspection of the chest Resp Effort & Inspection: normal respiratory effort Auscultation: clear to auscultation bilaterally Cardio Rate: regular rate Rhythm: regular rhythm Heart sounds: S1 normal heart sound present, S2 normal heart sound present, no gallops, no murmurs and no rubs Bruits: no abdominal aortic bruits and no carotid bruits GI Palpation (GI): No Abdominal aortic bruit present, Soft to palpation, nontender, No hepatosplenomegaly present and No Rebound tenderness present Auscultation: normal bowel sounds General: Yes no CVA tenderness Back/Spine/Pelvis Back: no CVA tenderness Cervical Spine: cervical ROM normal and No Cervical spine tenderness Thoracic/Lumbar Spine: thoraco-lumbar ROM normal, No pain with thoraco-lumbar ROM, No thoracic spinal tenderness and No lumbar spinal tenderness Skin Lesions: no lesions Rashes: no rashes Trauma: no lacerations or abrasions Wounds: no wounds Nails: normal Neuro General: patient oriented x3 Cranial nerves: Yes Equal, round and reactive pupils present Cognition (Neuro): normal cognition Gait exam (Neuro): Normal gait present Motor exam (neuro): 5/5 motor strength present throughout Sensory Exam: No Sensory deficit (Neuro) Deep tendon reflexes (DTR's): Right patellar reflex intensity grade: 2+ and Left patellar reflex intensity grade: 2+ Extrem General: Yes normal to inspection and No edema Psych Appearance: grossly normal Affect: normal affect Attitude: cooperative Thought process: Normal thought process present Coding Level of Care Code Est Pt Level 3 (23249) Diagnoses Annual physical exam Z00.00 Bilateral bunions M21.611; M21.612 Vision changes H53.9 Screening for cervical cancer Z12.4 Family history of breast cancer Z80.3 Additional Codes PHQ-9 - 86843 - PHQ-9 Billing: Yes ([id number]) Assessment & Plan Assessment & Plan (1) Annual physical exam: Code(s): Z00.00 - Encounter for general adult medical examination without abnormal findings Category: Medical Plan: 34?year?female?presents?for?complete?physical?exam Exam?within?normal?limits?except?as?described?below (2) Bilateral bunions: Code(s): M21.611 - Bunion of right foot; M21.612 - Bunion of left foot Category: Medical Plan: Referred?to?Podiatry (3) Vision changes: Code(s): H53.9 - Unspecified visual disturbance Category: Medical Plan: Vision?changes?with?worsening?night?vision/glare (4) Screening for cervical cancer: Code(s): Z12.4 - Encounter for screening for malignant neoplasm of cervix Category: Medical Plan: Followed?by?Katty?Lorena?at?[facility] Up-to-date (5) Family history of breast cancer: Code(s): Z80.3 - Family history of malignant neoplasm of breast Category: Medical Plan: Strong?family?history?of?breast?cancer?in?maternal?grandmother?and?mother Prior?mammogram?and?ultrasound?due?to?breast?pain?and?this?was?negative Will start?routine?screening?at?age?36 Orders: Referrals Ophthalmology Referral H53.9 - Unspecified visual disturbance Podiatry Referral M21.611 - Bunion of right foot, M21.612 - Bunion of left foot Ear/Nose/Throat Referral H92.09 - Otalgia, unspecified ear Medications: Refilled valacyclovir 500 mg PO Q12H 10 days 20 tabs 3RF
[2024-11-25 16:07] VITALS: BP 104/60; PULSE 76; RESP 14; TEMP 36.7; O2SAT 100; BMI 17.8
== END 2024-11-25 17:05 ==
PROVIDERS: PCP Family Medicine; Visit Provider Family Medicine
DX: Z00.00 Encounter for general adult medical examination without abnormal findings (principal); M21.611 Bunion of right foot; M21.612 Bunion of left foot; H53.9 Unspecified visual disturbance; Z12.4 Encounter for screening for malignant neoplasm of cervix; Z80.3 Family history of malignant neoplasm of breast

== ENCOUNTER → 2024-11-25 15:43 | Outpatient (BNVA) | payer OTHER, SELFPAY | PROVIDERS: PCP Family Medicine; Visit Provider Family Medicine | DX: Z00.01 Encounter for general adult medical examination with abnormal findings (principal); M21.611 Bunion of right foot; M21.612 Bunion of left foot; H53.9 Unspecified visual disturbance; Z80.3 Family history of malignant neoplasm of breast | CPT/HCPCS: 96127; 99212 ==

== ENCOUNTER 2024-12-22 07:44 | Outpatient (REF) | payer OTHER, SELFPAY ==
--- OUTSIDE RECORDS SUMMARY | 2024-12-22 07:48 | XMS_ITS | Clinical Summary ---
Author Organization [facility] Address [address] [place] [address] Phone Care Team Providers Care Consulting Intern Name Role Phone Unavailable Primary Care Provider Unavailabl e Immunizations Immunization Administration Dates Next Due DTP 05/26/1996, 2,1991,06/26,1991 HPV, Quadrivalent 01/13/2008,09/07/2007,06/29/20 07 Hep B, ped/adol 06/19/1998,03/15/1997,05/30/1996 Hib (PRP-T) 05/26/1992 MMR 01/24/1995,05/26/1992 Meningococcal Conj (Menactra) MCV4P 06/29/2007 OPV 05/26/1996, 2,1991,03/26 Td (adult) (MBL), 2 Lf tetan us toxoid, PF, adsorbed 04/29/2001 Varicella 03/15/1997 Social History Tobacco Use Types Packs/Day Years Used Date Smoking Tobacco: Never Assessed Comments Unknown Sex and Gender Information Value Date Recorded Sex Assigned at Not on file Legal Sex Female 4:43 PM EDT Gender Identity Not on file Sexual Orientation Not on file Plan of Treatment Health Maintenance Due Date Last Done Comments Varicella Vaccines (2 of 2 - 2-dose childhood series) 06/07/1997 03/15/1997 DTaP,Tdap,and Td Vaccines (6 - Tdap) 2002 04/29/2001, 05/26/1996, 09/25/1992, Additional history exists Influenza Vaccines (#1) 2024 COVID-19 Vaccine ( season) 2024 HIB Vaccines Completed 05/26/1992 MMR Vaccines Completed 01/24/1995, 05/26/1992 IPV Vaccines Completed 05/26/1996, 10/1991, 1991, Additional history exists Hepatitis B Vaccines Completed 06/19/1998, 03/15/1997, 05/30/1996 Meningococcal Vaccine Completed 06/29/2007 HPV Vaccines Completed 01/13/2008, 08/26, 06/29/2007 Hepatitis A Vaccines Aged Out No long er eligible based on patient's age to complete this topic Men B Vaccine Aged Out No longer elig ible based on patient's age to complete this topic Pneumococcal Vaccine Aged Out No long er eligible based on patient's age to complete this topic
--- OUTSIDE RECORDS SUMMARY | 2024-12-22 07:49 | XMS_ITS | Continuity of Care Document ---
Author Name [facility] Organization [facility] Care Team Providers Care Associate Director Of Nursing Name Role Phone [facility] Unavailable Unavailable Medications Combined list of outpatient [...] topical cream Start Date: 04/11/21 Status: Ordered Repeat number: 1 Ordered 2020 No Facilit y Access chlorhexidi ne 0.12% mucous membrane liquid chlorhex idine 0.12% mucous membrane liquid Start Date: 11/02/20 Status: Ordered Repeat number: 1 Ordered 2020 No Facilit y Access doxycycline 20 mg oral tablet 0 total refill(s ) Ordered 2020 No Facilit y Access predniSONE 10 mg oral tablet predniSO NE 10 mg oral tablet Start Date: 04/11/21 Status: Ordered Repeat number: 1 Ordered 2020 No Facilit y Access valACYclovi r 500 mg oral tablet 3 total refill(s ) Ordered 2020 No Facilit y Access valACYclovi r 500 mg oral tablet 3 total refill(s ) Ordered 2020 No Facilit y Access Allergies, Adverse Reactions, [...] Site Reaction Lot Number CVX Code Drug Director Product Status Comments Source influenza virus vaccine, inactivated 2023 ENRICO Kwon amado, left (delt oid) [id number] Seqirus, [employer] complet ed influenza virus vaccine, inactivat ed 08/28/24 Given 8203R-1 04 MDG influenza, injectable, quadrivalent, contains preservative 1 2020 [id number] 158 [facility] complet ed influenza , injectabl e, quadrival ent, contains preservat teresa DoD COVID Vaccine Pfizer 2020 [id number] PFIZER complet ed COVID Vaccine Pfizer 08/11/21 Given Ambulat ory Pharmac y SARS-COV-2 (COVID-19) vaccine, mRNA, spike protein, LNP, preservative free, 30 mcg/0.3mL dose 2 2020 [id number] 208 Pfizer, Inc (PFR) complet ed SARS-COV- 2 (COVID-19 ) vaccine, mRNA, spike protein, LNP, preservat teresa free, 30 mcg/0.3mL dose DoD COVID Vaccine Pfizer 2020 [id number] 208 PFIZER complet ed COVID Vaccine [facility] 07/14/21 Given Ambulat ory Pharmac y SARS-COV-2 (COVID-19) vaccine, mRNA, spike protein, LNP, preservative free, 30 mcg/0.3mL dose 1 2020 [id number] 208 Pfizer, Inc (PFR) complet ed SARS-COV- 2 (COVID-19 ) vaccine, mRNA, spike protein, LNP, preservat teresa free, 30 mcg/0.3mL dose DoD hepatitis A adult vaccine 2020 [id number] 52 GlaxoSmithKli ca complet ed hepatitis A adult vaccine 03/07/21 Given Ambulat ory Pharmac y hepatitis A vaccine, adult dosage 2 2020 [id number] 52 [facility] complet ed hepatitis A vaccine, adult dosage DoD influenza, injectable, quadrivalent- pf 2019 [id number] 150 Seqirus complet ed influenza , injectabl e, quadrival ent-pf 09/04/20 Given Ambulat ory Pharmac y Influenza, injectable, quadrivalent, preservative free 1 2019 [id number] 150 Seqirus (SEQ) complet ed Influenza , injectabl e, quadrival ent, preservat teresa free [facility] adenovirus vaccine, live 2019 [id number] 143 Teva Pharm[employer] ls complet ed adenoviru s vaccine, live 07/25/20 Given Ambulat ory Pharmac y hepatitis A adult vaccine 2019 Body, whole [id number] 52 GlaxoSmithKli ne complet ed hepatitis A adult vaccine 07/25/20 Given Ambulat ory Pharmac y hepatitis A vaccine, adult dosage 1 2019 DONNA STRONG [id number] 52 [employer] ([facility]) complet ed hepatitis A vaccine, adult dosage DoD Adenovirus, type 4 and type 7, live, oral 1 2019 [id number] 143 [facility] ([facility]) complet ed Adenoviru s, type 4 and type 7, live, oral DoD tetanus, diphtheria, acellular pertu is 2019 [id number] 115 GlaxoSmithKli ne complet ed tetanus, diphtheri a, acellular pertussis 07/19/20 Given Ambulat ory Pharmac y meningococcal A,C,Y,W-135 (MCV4P) 2019 [id number] 114 sanofi pasteur complet ed meningoco ccal [...] diphtheria toxoid conjugate vaccine (MCV4P) 1 2019 [id number] 114 Sanofi Pasteur (PMC) complet ed meningoco ccal polysacch aride (groups A, C, Y and W-135) diphtheri a toxoid conjugate vaccine (MCV4P) DoD tetanus toxoid, reduced diphtheria toxoid, and acellular pertu is vaccine, adsorbed 1 2019 [id number] 115 [employer] [facility] ([facility]) complet ed tetanus toxoid, reduced diphtheri [...] Reference Range Date Interpretation Specimen Comments Source Infectiou s Disease HIV-1/O/2 Non-Reac tive 1 (01/26/24 1:30 [...] Prevention' s HIV diagnostic algorithm. Refer to [facility] Lab Guide for additional information : [email or web address] x Testing performed by [facility] [address] [email or web address] EPILAB Miscellan eous Sendouts Repository Sample Received (01/26/24 1:30 PM) 01/25 N [address] [employer] EPILAB Encounters Combined list of: 1) Encounters from Department of Veterans Affairs facilities going backup to the last 18 months, not all VA inpatient encounters are included; 2) Encounters from the Department of Defense facilities going backup to 280 months. Location Location Details Encounter Type Encounter Number Reason For Visit Attending Provider ADM Date DC Date Status Disposition [place] [facility] [place] [address](Opt ometry Clinic [facility]) OUTPATIENT [id number] MANDY NATH 07/25 Released w/o Limitations [facility] [place] [address](O ptometr y Clinic [facility]) [place] [address](All ergy, [facility]) OUTPATIENT [id number] Notes Entered by: DONNA STRONG 25 Jul 2020 1443 ------- ------- ------- ------- -- MANUEL MARTINES 07/25 Released w/o Limitations [facility] [place] [address](A llergy, [facility]) [place] [address]([facility]) OUTPATIENT [id number] Notes Entered by: АННА PINZON 31 Jul 2020 1036 ------- ------- ------- ------- -- strep prophyl JAYDEN Poon 07/31 Released w/o Limitations [facility] [place] [address]([facility] d) [place] [address](AFN G [address]) OUTPATIENT [id number] Notes Entered by: SORAYA ROSA 15 Oct 2021 0858 ------- ------- ------- ------- -- CHERYL/SORAYA BANERJEE 10/15 Released w/o Limitations [facility] [place] [address](A FNG [address]) [place] [address](AFN G [address]) TELE CONSULT [id number] SORAYA ROSA 11/06 [facility] [place] [address](A FNG [address]) [place] [address](AFN G [address]) OUTPATIENT [id number] Notes Entered by: SEPIDEH TSE 08 Jan 2022 1505 ------- ------- ------- ------- -- Post-CONNOR Franz 01/08 Released w/o Limitations [place] [place] [address](A FNG [address]) [place] [address](AFN G [address]) OUTPATIENT [id number] Notes Entered by: SORAYA ROSA 06 Apr 2022 1410 ------- ------- ------- ------- -- HA3 SORAYA ROSA 04/06 [facility]itations [facility] [place] [address](A FNG [address]) 8203R-104 MDG Outpatient [id number] KIKI RUBIN 01/25 Discharge Disposition: Home or Self Care 8203R-1 04 MDG 8203R-104 MDG Care Not Rendered [id number] 03/17 Discharge Disposition: Home or Self Care 8203R-1 04 MDG 8203R-104 MDG Mass Vaccine [id number] 08/28 Discharge Disposition: Home or Self Care 8203R-1 04 MDG 8203R-104 MDG Mass Vaccine [id number] 08/30 8203R-1 04 MDG Procedures Combined list of: 1) Procedures from Department of Veterans Affairs facilities going back up to thelast 18 months, not all VA non-surgical procedures are included; 2) All procedures from the Department of Defense facilities. Procedure Procedure Type Code Date Perfomer Comments Sour e Screening Test Of Visual Acuity, Quantitative, Bilateral Screening Test Of Visual Acuity, Quantitative, Bilateral 68770 MANDY NATH [facility] Hepatitis A Vaccine Adult Dosage (Intramuscular Use) Hepatitis A Vaccine Adult Dosage (Intramuscular Use) 22444 DONNA STRONG Hep A (Adult); Series #: 1; 1.0 mL; IM; Unknown; Mfg: 3[employer]; Lot: [id number]; VIS given (Kendall: 05/22/2020). [facility] Immunization Administration By Injection, One Vaccine Immunization Administration By Injection, One Vaccine 40928 DONNA STRONG DoD Physician Supervised Injection Intramuscular Physician Supervised Injection Intramuscular 96066 АННА PINZON [facility] THERAPEUTIC, PROPHYLACTIC, OR DIAGNOSTIC INJECTION (SPECIFY SUBSTANCE OR DRUG); SUBCUTANEOUS OR INTRAMUSCULAR 07/31/20 [facility] SCREENING TEST OF VISUAL ACUITY, QUANTITATIVE, BILATERAL 07/25/20 DoD No data available for this section Ambulato ry Pharmacy Social History Combined list of available smoking, tobacco, and other social history from Department of Defense and Veterans Affairs facilities. Social History Type Response Date Comment Sour e This section is an empty social history section. DoD Assessment and Plan Combined list of future care activities from Department of Defense and Veterans Affairs facilities (e.g., assessment and plan notes, appointments, orders, and referrals). Additional future care activities may be listed in the Plan of Care section. Result Assessment and Plan Date Source Assessment and Plan No data available for this section 12/22/2024 Ambulatory Pharmacy Functional Status Combined list of recent functional and cognitive assessments recorded at Department of Defense and [facility] Affairs ([place]VA Functional [place] Measurement (FIM) Scale: 1 = Total Assistance (Subject = 0% +), 2 = Maximal Assistance (Subject = 25% +), 3 = Moderate Assistance (Subject = 50% +), 4 = Minimal Assistance (Subject = 75% +), 5 = Supervision, 6 = Modified [place] (Device), 7 = Complete [place] (Timely, Safely). Assessment Date/Time Source Assessment Type Assessment Skill Assessment Score Assessment Details No data available for this section
--- OUTSIDE RECORDS SUMMARY | 2024-12-22 07:49 | XMS_ITS | Patient Health Record ---
Author Organization [facility] Address [address] [place] [address] Support Name Relationship Address Phone TONYA BARRIENTOS Guarantor Unknown Reason For Referral No Information Medications Medication SIG (Take, Route, Fr equency, Duration) Notes Start Date End Date Status valACYclovir HCl 500MG 1 ORAL twice daily for -3 Farrukh-MJ 0 01/15/2012 Active Vitamins 1 ORAL daily for -3 Farrukh-MJ 01/15/2012 Active Valtrex 500MG 2 ORAL daily for 90 Farrukh-MJ 01/15/2012 Active Plan Of Treatment No Information Insurance Providers Payer Name Payer Address Payer Phone Subscriber Number Group Number Insured Name Patient Relationship to Insured Coverage Start Date Coverage End Date [facility] [address] [place] [address] [id number] TONYA DOUGHERTY Self - patient is the insured
--- OUTSIDE RECORDS SUMMARY | 2024-12-22 07:49 | XMS_ITS | Encounter Summary ---
Author Organization [facility] Address [address] [place] [address] Phone Care Team Providers Care Radiographic Technologist Name Role Phone Mike Rodas MD Primary Care Provider [phone] Encounter Details Date Type Department Care Team (Late st Contact Info) Description 09/10/2012 Documentation [facility] [place] [address] [place], [place] [id number] Family Medicine, Physician [address] [place], [place] [phone] Social History Tobacco Use Types Packs/Day Years [...] on filedocumented in this encounter Care Teams Radiographic Technologist Relationship Specialty Start Date End Date Mike Rodas MD [address] [facility] [place] [address] PCP - General 06/05/17 12/17/22 documented as of this encounter
--- OUTSIDE RECORDS SUMMARY | 2024-12-22 07:49 | XMS_ITS | Encounter Summary ---
Author Organization [facility] Address [address] [place] [address] Phone Care Team Providers Care Sail Maker Name Role Phone Mike Rodas MD Primary Care Provider [phone] Encounter Details Date Type Department Care Team (Late st Contact Info) Description 10/11/2012 Documentation [facility] [place] Family Medicine [address] [place], [place] [phone] Family Medicine, Physician [address] [place], [place] [phone] Social History Tobacco Use Types Packs/Day Years [...] on filedocumented in this encounter Care Teams Sail Maker Relationship Specialty Start Date End Date Mike Rodas MD [address] [facility] [place] [address] PCP - General 06/05/17 12/17/22 documented as of this encounter
[2024-12-22 11:32] LABS: Appearance Urine Turbid; Color Urine Yellow; Glucose Urine UA Negative (Negative); Leukocyte Esterase Urine Negative (Negative); Nitrite Urine Negative (Negative); PH 5.5 (5.0-9.0); Specific Gravity - Urine >= 1.030 (1.005-1.025); Urine Blood Negative (Negative); Urine Ketones Negative (Negative); Urine Protein Negative (Neg-Trace)
[2024-12-22 11:32] LABS: MANUAL DIFF FLAG NO
[2024-12-22 12:02] LABS: Basophils Absolute Auto 0.1 X10*3/uL (0.0-0.2); Eosinophils Absolute Auto 0.1 X10*3/uL (0.0-0.4); Eosinophils Percent Auto 1.2 % (0-4); Hematocrit 37.5 % (37.0-47.0); Hemoglobin 12.2 g/dl (12.0-16.0); Imm Gran Abs Auto 0.03 X10*3/uL (0.00-0.03); Imm Gran Pct Auto 0.3 % (0.0-0.4); Lymphocytes Absolute Auto 2.4 X10*3/uL (1.2-4.9); Lymphocytes Percent Auto 27.4 % (20-40); Mean Corpuscular HGB Conc 32.5 g/dl (31.0-35.0); Mean Corpuscular Hemoglobin 30.1 pg (27.0-33.0); Mean Corpuscular Volume 92.6 fL (80.0-98.0); Mean Platelet Volume 11.3 fL (9.4-12.3); Monocytes Absolute Auto 0.5 X10*3/uL (0.1-1.2); Neutrophils Absolute Auto 5.5 x10*3/uL (2.0-8.3); Neutrophils Percent Auto 64.1 % (45-73); Platelet Count 193 X10*3/uL (160-400); Red Blood Count 4.05 X10*6/uL (4.20-5.50); White Blood Count 8.6 X10*3/uL (4.8-10.8)
[2024-12-22 12:29] LABS: Creatinine Urine 217.59 mg/dL; Microalbum/Creatinine Ratio Ur 4.1 ug/mg cr (<30)
[2024-12-22 12:37] LABS: Alanine Aminotransferase 21 U/L (0-31); Albumin Level 4.2 g/dL (3.5-5.0); Alkaline Phosphatase 38 U/L (39-117); Anion Gap 10 (12-20); Aspartate Amino Transferase 24 U/L (5-31); Bilirubin Total 0.6 mg/dL (0.0-1.0); Blood Urea Nitrogen 14 mg/dL (9-16); Calcium 9.4 mg/dL (8.4-10.2); Carbon Dioxide 29 mmol/L (22-29); Chloride 106 mmol/L (96-108); Cholesterol 193 mg/dL (<200); Estimated Glomerular Filt Rate > 60; Glucose Fasting 89 mg/dL (60-99); HDL Cholesterol 71 mg/dL (>40); LDL Cholesterol Calculated 114 mg/dL (<100); Sodium 141 mmol/L (135-145); Total Protein 7.4 g/dL (6.5-8.0); Triglycerides 44 mg/dL (<150)
== END 2024-12-22 07:45 | disposition home or self-care (01) ==
LOC: HO.WFDLDS 07:44
PROVIDERS: Visit Provider Family Medicine
DX: Z00.00 Encounter for general adult medical examination without abnormal findings (principal); H92.09 Otalgia, unspecified ear; I10 Essential (primary) hypertension
CPT/HCPCS: 36415; 80053; 80061; 81003; 82043; 82570; 84443; 85025

== ENCOUNTER 2024-12-30 09:57 | Outpatient (AMB) | payer OTHER, SELFPAY ==
--- NOTE | 2024-12-30 09:54 | A.OFFPC_ITS ---
Intake Visit Reasons: f/u CPE-labs via telemedicine Utility Bag Assembler Required: No Allergies latex [LATEX] Allergy (Unknown, Verified 12/30/24 09:55) UNKNOWN poison triston Allergy (Intermediate, Uncoded 12/11/23 13:16) rash Medication List - Last Reconciled 12/30/24 by Jaquan Hendrickson MD valacyclovir 500 mg PO Q12H 10 days Tobacco use date assessed: 11/25/24 Dental Screening Dental Screen Date: 11/25/24 HPI f/u CPE-labs via telemedicine HPI Details 34 y/o female presents to f/u CPE-labs v ia telemedicine. Labs drawn 12/22/24. Reviewed labs with pt. Triglycerides 44. TC 193. LDL 114. HDL 71. PFSH Medical History Gum disease FH: breast cancer in first degree relative Hypotension Surgical History No pertinent past surgical history Family History Maternal Grandmother Breast CA Mother Breast CA Social History Housing: House Alcohol intake: current Patient Tobacco Use Status: Never used Tobacco e-Cigarette/Vaping Use: Never Used Second Hand Smoke Exposure: No service: Yes Current occupational status: employed Current occupation: [employer] Cognitive needs: No Hearing needs: No Vision needs: No Female Reproductive History Menstrual Age of Menarche: 17 Questionnaire Thrive Questionnaire Date Thrive assessed: 11/25/24 EDE-7 AMB Questionnaire EDE-7 Date EDE - 7 assessed: 11/25/24 Source: Developed by Drs. Gorge Larios, Margarita Hall, Luciano Capps and colleagues, with an educational david from [employer]. Review of Systems Const Denies chills, Denies fatigue, Denies fever(s), Denies headache(s) and Denies weakness ENT Denies dizziness and Denies headache(s) Card Denies dyspnea Resp Denies cough, Denies dyspnea, Denies wheezing and Denies other (shortness of breath) Musc Denies numbness and Denies tingling Neuro Denies dizziness, Denies headache(s), Denies numbness, Denies tingling and Denies weakness Psych Denies anxiety and Denies depression Endo Denies fatigue Aller/Immun Denies wheezing Physical exam (Primary Care) Tobacco/Smoking Status: Tobacco use Status Tobacco use date assessed 11/25/24 12/30/24 09:56 Patient Tobacco Use Status Never used Tobacco 12/30/24 09:56 e-Cigarette/Vaping Use Never Used 12/30/24 09:56 Thrive Assessment: Date of Thrive Assessment Date Thrive assessed 11/25/24 12/30/24 09:56 Telehealth Telehealth Telehealth Platform: Telephone Location of provider rendering services: practice address Location of patient: address on file Patient Identification confirmed using: Name, : Yes Telehealth method: voice only Patient verbally consented to treatment: Yes Patient verbally consented to billing insurance company: Yes Patient informed of any privacy concerns related to visit: Yes Minutes spent on Phone/Video with Pt.: 14 Coding Level of Care Code Tele Est Pt Level 2 (07664) Diagnoses Elevated LDL cholesterol level E78.00 Assessment & Plan Assessment & Plan (1) Elevated LDL cholesterol level: Code(s): E78.00 - Pure hypercholesterolemia, unspecified Category: Medical Plan: Mildly?elevated?LDL?cholesterol?but?her?HDL?ratios?are?ideal Patient?says?she?is?already?eating?a?very?healthy?diet No?need?for?medications Continue?healthy?diet?and?good?weight?control Medications: Refilled valacyclovir 500 mg PO Q12H 20 tabs 11RF 10 days
--- OUTSIDE RECORDS SUMMARY | 2024-12-30 11:08 | XMS_ITS | Clinical Summary ---
Author Organization [facility] Address [address] [place] [address] Phone Care Team Providers Care Dye House Hand Name Role Phone Unavailable Primary Care Provider [...]
--- OUTSIDE RECORDS SUMMARY | 2024-12-30 11:08 | XMS_ITS | Encounter Summary ---
Author Organization [facility] Address [address] [place] [address] Phone Care Team Providers Care Mercury Washer Name Role Phone Mike Rodas MD Primary Care Provider [phone] Encounter Details Date Type Department Care Team (Late st Contact Info) Description 10/11/2012 Documentation [facility] [place] Family Medicine [address] [place], [place] [id number] Family Medicine, Physician [address], [place] [phone] Social History Tobacco Use Types Packs/Day Years [...] on filedocumented in this encounter Care Teams Mercury Washer Relationship Specialty Start Date End Date Mike Rodas MD [address] [facility] [address] PCP - General 06/05/17 12/17/22 documented as of this encounter
--- OUTSIDE RECORDS SUMMARY | 2024-12-30 11:08 | XMS_ITS | Encounter Summary ---
Author Organization [facility] Address [address] [place] [address] Phone Care Team Providers Care Light Cleaner Name Role Phone Mike Rodas MD Primary Care Provider [phone] Encounter Details Date Type Department Care Team (Late st Contact Info) Description 09/10/2012 Documentation [facility] [place] Family Medicine [address] [place], [place] [phone] Family Medicine, Physician [address], [place] [phone] Social History Tobacco Use Types Packs/Day Years [...] on filedocumented in this encounter Care Teams Light Cleaner Relationship Specialty Start Date End Date Mike Rodas MD [address] [facility] [place] [address] PCP - General 06/05/17 12/17/22 documented as of this encounter
== END 2024-12-30 14:20 | disposition home or self-care (01) ==
LOC: HO.HMCFM 09:57
PROVIDERS: PCP Family Medicine; Visit Provider Family Medicine
DX: E78.00 Pure hypercholesterolemia, unspecified (principal)

== ENCOUNTER 2025-01-26 09:06 | Outpatient (AMB) | payer OTHER, SELFPAY ==
--- NOTE | 2025-01-26 09:08 | A.OFFVIS_ITS ---
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 Doing well with fowl blood tester concerns: Pelvic bloating and pressure not related to any dietary or GI changes. She reports nothing has changed other than the symptoms. She reports her mom had a hysterectomy for unknown reasons. Additionally she reports a skin tag that is bothersome that she has been trying to remove on her own unsuccessfully. She reports it is bothersome and would like it removed. Regular monthly menses. Currently is sexually active, control vasectomy. She denies vaginal itching and irritation. STI screening offered; she declined. She tries to eat healthy and stays active with exercise. Denies family history of breast, ovarian or colon cancer. Last pap smear 2022, negative. [facility] Medical History Pelvic pressure in female Gum disease FH: breast cancer in first degree relative Hypotension Surgical History No pertinent past surgical history Family History Maternal Grandmother Breast CA Mother Breast CA Paternal Grandfather Colon cancer Social History Housing: House Alcohol intake: current Patient Tobacco Use Status: Never used Tobacco e-Cigarette/Vaping Use: Never Used Second Hand Smoke Exposure: No service: Yes Current occupational status: employed Current occupation: [employer] Cognitive needs: No Hearing needs: No Vision needs: No Female Reproductive History Menstrual Age of Menarche: 17 Date of last menstrual period: 01/06/25 control method: other (vasectomy) Total pregnancies: 3 Full term: 3 Number of Living Children: 3 Date of last pap smear: 11/24/22 (neg pap and hpv) Date of Mammogram: 01/08/24 (Birad 1) Review of Systems Const All systems reviewed & are unremarkable except as noted in HPI and below Reports as per HPI Eyes Reports no additional complaints ENT Reports no additional complaints Card Reports no additional complaints Resp Reports no additional complaints GI Reports as per HPI and Reports no additional complaints Reports as per HPI Musc Reports no additional complaints Skin/Breast Reports as per HPI Neuro Reports no additional complaints Psych Reports no additional complaints Endo Reports no additional complaints Matt/Lymph Reports no additional complaints Aller/Immun Reports no additional complaints Physical Exam Vital Signs: Last Vital Signs BP 106/54 L 01/26/25 09:09 BMI result Body Mass Index 17.8 Const General: cooperative, healthy appearing, no acute distress, well developed and alert Orientation/consciousness: patient oriented x3 HEENT Head: Yes normal to inspection Eyes General: appearance normal, both eyes and all related structures Neck Neck: Yes normal visual inspection Thyroid: Thyroid normal Chest Chest palpation & inspection: normal inspection of the chest and other (no puckering, dimpling, peau de orange, retraction, discharge, masses) Breast/axilla inspection: normal inspection of the breasts Breast/axilla palpation: normal palpation of the breasts Resp Effort & Inspection: normal respiratory effort GI Inspection: Yes normal to inspection Palpation (GI): Soft to palpation Rectal Exam - Female: deferred Other: Left lower labial lesion does not appear as a skin tag at this time. General: Yes bladder normal to palpation External Female Exam: normal external appearance and normal appearance of the urethra Speculum Exam - Vagina: normal appearance of the vagina, normal palpation and normal vaginal discharge Speculum Exam - Cervix: normal appearance of the cervix and normal palpation Bimanual exam- vagina & uterus: normal bimanual exam, normal palpation, uterine size normal, bladder normal to palpation, normal palpation and non-tender Bimanual Exam- Adnexa, other: no masses Skin General skin exam: no rashes or lesions noted Rashes: no rashes Neuro General: patient oriented x3 Cognition (Neuro): normal cognition Extrem General: Yes normal to inspection Psych Attitude: cooperative Thought process: Normal thought process present Assessment & Plan Assessment & Plan (1) Encounter for annual routine gynecological examination: Code(s): Z01.419 - Encounter for gynecological examination (general) (routine) without abnormal findings Category: Medical Plan: Discussed: Current recommendations for pap smears per ASCCP guidelines. Breast awareness and periodic breast exams. Maintain a healthy lifestyle including a well balanced diet and routine exercise. Patient verbalizes understanding and agrees to the plan of care. She was given opportunity to ask questions and all questions were answered to the best of my ability. RTO in one year for annual fowl blood tester examination. This note is constructed using voice recognition software. While every effort has been made to ensure accuracy, vending machine mechanic errors may have been included. (2) Labial lesion: Code(s): N90.89 - Other specified noninflammatory disorders of vulva and perineum Plan: Advised to schedule a consult appointment Dr. Barrera for evaluation of left labial lesion, desires removal. (3) Pelvic pressure in female: Code(s): R10.2 - Pelvic and perineal pain Category: Medical Plan: Discussed: Plan ultrasound of pelvis for evaluation of pelvic pressure. Follow up pending results okay for tele visit. The patient expressed understanding and agreement with the plan of care. All of her questions and concerns were addressed to the best of my ability. Plan Total time I personally spent on visit and management today: ?15 minutes. Time spent included review of pertinent office notes in the electronic health record; review of laboratory and imaging results; review of personal family medical history; performing physical exam; discussing diagnosis and plan of care with the patient; documenting the encounter in the EMR. Orders: Orders US pelvic and transvaginal Today R10.2 - Pelvic and perineal pain Coding Level of Care Code Est Pt Level 2 (44846) Est Pt Prev Care 18-39y(86137) Diagnoses Encounter for annual routine gynecological examination Z01.419 Labial lesion N90.89 Pelvic pressure in female R10.2
[2025-01-26 09:09] VITALS: BP 106/54; BMI 17.8
--- OUTSIDE RECORDS SUMMARY | 2025-01-26 09:24 | XMS_ITS | Encounter Summary ---
Author Organization [facility] Address [address] [place] [address] Phone Care Team Providers Care Spot Welder Name Role Phone Mike Rodas MD Primary Care Provider [phone] Encounter Details Date Type Department Care Team (Late st Contact Info) Description 09/10/2012 Documentation [facility] [place] Family Medicine [address] [place], [place] [phone] Family Medicine, Physician [address], [place] [phone] Social History Tobacco Use Types Packs/Day Years [...] on filedocumented in this encounter Care Teams Spot Welder Relationship Specialty Start Date End Date Mike Rodas MD [address] [facility] [place] [address] PCP - General 06/05/17 12/17/22 documented as of this encounter
--- OUTSIDE RECORDS SUMMARY | 2025-01-26 09:24 | XMS_ITS | Clinical Summary ---
Author Organization [facility] Address [address] [place] [address] Phone Care Team Providers Care Web Software Engineer Name Role Phone Unavailable Primary Care Provider [...]
--- OUTSIDE RECORDS SUMMARY | 2025-01-26 09:24 | XMS_ITS | Continuity of Care Document ---
Author Name [facility] Organization [facility] Care Team Providers Care Wall Insulation Sprayer Name Role Phone [facility] Unavailable Unavailable Medications Combined list of outpatient [...] Site Reaction Lot Number CVX Code Drug Program Evaluation Consultant Status Comments Source influenza virus vaccine, inactivated 2023 ENRICO Kwon amado, left (delt oid) [id number] Seqirus, A [employer] complet ed influenza virus vaccine, inactivat ed 08/28/24 Given 8203R-1 04 MDG COVID Vaccine Pfizer 2020 [id number] PFIZER complet ed COVID Vaccine Pfizer 08/11/21 Given Ambulat ory Pharmac y COVID Vaccine Pfizer 2020 [id number] PFIZER complet ed COVID Vaccine Pfizer 07/14/21 Given Ambulat ory Pharmac y hepatitis A adult vaccine 2020 [id number] GlaxoSmithKli ne complet ed hepatitis A adult vaccine 03/07/21 Given Ambulat ory Pharmac y influenza, injectable, quadrivalent- pf 2019 [id number] 150 Seqirus complet ed influenza , injectabl e, quadrival ent-pf 09/04/20 Given Ambulat ory Pharmac y adenovirus vaccine, live 2019 [id number] 143 Teva Pharmaceutica ls complet ed adenoviru s vaccine, live 07/25/20 Given Ambulat ory Pharmac y hepatitis A adult vaccine 2019 Body, whole [id number] 52 GlaxoSmithKli ne complet ed hepatitis A adult vaccine 07/25/20 Given Ambulat ory Pharmac y tetanus, diphtheria, acellular pertu is 2019 [id number] GlaxoSmithKli ne complet ed tetanus, diphtheri a, acellular pertussis 07/19/20 Given Ambulat ory Pharmac y meningococcal A,C,Y,W-135 (MCV4P) 2019 [id number] sanofi pasteur complet ed meningoco ccal A,C,Y,W-1 35 (MCV4P) 07/19/20 Given Ambulat ory Pharmac y poliovirus vaccine, inactivated 2019 [id number] sanofi pasteur complet ed polioviru s vaccine, inactivat ed 07/19/20 Given Ambulat ory Pharmac y Results Combined list of recent chemistry, hematology [...] Prevention' s HIV diagnostic algorithm. Refer to [facility] Lab Guide for additional information : [email or web address] x Testing performed by [facility] 5600A-U [employer] EPILAB Miscellan eous Sendouts Repository Sample Received (01/26/24 1:30 PM) 01/25 N 5600A-U SAFSAM EPILAB Encounters Combined list of: 1) Encounters from [facility] facilities going backup to the last 18 months, not all [place] inpatient encounters are included; 2) Encounters from the Department of [facility] facilities going backup to 280 months. Location Location Details Encounter Type Encounter Number Reason For Visit Attending Provider ADM Date DC Date Status Disposition Source 8203R-104 MDG Care Not Rendered [id number] 03/17 Discharge Disposition: Home or Self Care 8203R-1 04 MDG 8203R-104 MDG Mass Vaccine [id number] 08/28 Discharge Disposition: Home or Self Care 8203R-1 04 MDG 8203R-104 MDG Mass Vaccine [id number] 08/30 8203R-1 04 MDG Procedures Combined list of: 1) Procedures from [facility] facilities going back up to thelast 18 months, not all [place] non-surgical procedures are included; 2) All procedures from the Department of Defense facilities. Procedure Procedure Type Code Date Perfomer Comments Sourc e No data available for this section Ambulatory P harmacy Assessment and Plan Combined list of future care activities from Department of Defense and Veterans [facility] facilities (e.g., assessment and plan notes, appointments, orders, and referrals). Additional future care activities may be listed in the Plan of Care section. Result Assessment and Plan Date Source Assessment and Plan No data available for this section 01/26/2025 Ambulatory Pharmacy Functional Status Combined list of recent functional and cognitive assessments recorded at [facility] ([place]).[place] Functional [place] Measurement (FIM) Scale: 1 = Total Assistance (Subject = 0% +), 2 = Maximal Assistance (Subject = 25% +), 3 = Moderate Assistance (Subject = 50% +), 4 = Minimal Assistance (Subject = 75% +), 5 = Supervision, 6 = Modified [place] (Device), 7 = Complete [place] (Timely, Safely). Assessment Date/Time Source Assessment Type Assessment Skill Assessment Score Assessment Details No data available for this section
--- OUTSIDE RECORDS SUMMARY | 2025-01-26 09:24 | XMS_ITS | Patient Health Record ---
Author Organization [facility] Address [address] [place] [address] Support Name Relationship Address Phone TONYA BARRIENTOS [...] Insured Coverage Start Date Coverage End Date [facility] [address] [place] [address] [phone] [id number] TONYA DOUGHERTY Self - patient is the insured
--- OUTSIDE RECORDS SUMMARY | 2025-01-26 09:24 | XMS_ITS | Encounter Summary ---
Author Organization [facility] Address [address] [place] [address] Phone Care Team Providers Care Candy Starch Mold Printer Name Role Phone Mike Rodas MD Primary Care Provider [phone] Encounter Details Date Type Department Care Team (Late st Contact Info) Description 10/11/2012 Documentation [facility] [place] Family Medicine [address] [place], [place] [phone] Family Medicine, Physician [address], [place] [phone] Social History Tobacco Use Types Packs/Day Years [...] on filedocumented in this encounter Care Teams Candy Starch Mold Printer Relationship Specialty Start Date End Date Mike Rodas MD [address] [facility] [address] PCP - General 06/05/17 12/17/22 documented as of this encounter
== END 2025-01-26 09:46 | disposition home or self-care (01) ==
LOC: HO.HWS 09:06
PROVIDERS: PCP Family Medicine; Visit Provider Advanced Practice Midwife
DX: Z01.419 Encounter for gynecological examination (general) (routine) without abnormal findings (principal); N90.89 Other specified noninflammatory disorders of vulva and perineum; R10.2 Pelvic and perineal pain
CPT/HCPCS: 99212; 99395; 99459

== ENCOUNTER → 2025-01-26 09:06 | Outpatient (BNVA) | payer OTHER, SELFPAY | PROVIDERS: PCP Family Medicine; Visit Provider Advanced Practice Midwife | DX: Z01.419 Encounter for gynecological examination (general) (routine) without abnormal findings (principal); N90.89 Other specified noninflammatory disorders of vulva and perineum; R10.2 Pelvic and perineal pain | CPT/HCPCS: 99212; 99459 ==

== ENCOUNTER 2025-05-19 14:38 | Outpatient (REF) | payer OTHER, SELFPAY ==
--- NOTE | ~2025-05-19 | US_ITS ---
EXAMINATION: US PELVIS TRANSABDOMINAL AND TRANSVAGINAL HISTORY: R10.2 - Pelvic and perineal pain COMPARISON: There are no prior studies available for comparison. TECHNIQUE: Transabdominal and endovaginal real-time 2D basurto-scale ultrasound was performed. FINDINGS: Uterus: The uterus is normal in size, measuring 10.0 x 4.1 x 6.5 cm. Myometrium has a normal echotexture. There is a left-sided uterine fibroid measuring 2.1 x 1.9 x 2.0 cm. Endometrium: The endometrial stripe measures 2 mm in thickness. There is trace fluid in the endometrial canal. Right ovary: The right ovary measures 3.3 x 2.2 x 2.3 cm. The right ovary is normal in size and echotexture. Left ovary: The left ovary measures 3.9 x 2.1 x 2.3 cm. The left ovary is normal in size and echotexture. Pelvic fluid: There is a small amount of free fluid in the pelvis.. US/US pelvic and transvaginal IMPRESSION: 1. 2.1 x 1.9 x 2.0 cm left uterine fibroid. 2. Trace free fluid in the endometrial canal. 3. Small amount of free fluid in the pelvis. Electronically signed by: Gorge Howard MD 05/19/2025 03:12 PM EDT
--- OUTSIDE RECORDS SUMMARY | 2025-05-19 14:39 | XMS_ITS | Continuity of Care Document ---
Author Name [facility] Organization [facility] Care Team Providers Care Social Work Specialist Name Role Phone [facility] Unavailable Unavailable Medications Combined list of outpatient [...] Site Reaction Lot Number CVX Code Drug Automatic Seamer Status Comments Source influenza virus vaccine, inactivated 2023 ENRICO Kwon amado, left (delt oid) [id number] Se[employer]irus, [employer] complet ed influenza virus vaccine, inactivat ed 08/28/24 Given 8203R-1 04 MDG influenza, injectable, quadrivalent, contains preservative 1 2020 [id number] 158 [facility] influenza , injectabl e, quadrival ent, contains preservat teresa DoD COVID Vaccine Pfizer 2020 [id number] PFIZER complet ed COVID Vaccine Pfizer 08/11/21 Given Ambulat ory Pharmac y SARS-COV-2 (COVID-19) vaccine, mRNA, spike protein, LNP, preservative free, 30 mcg/0.3mL dose 2 2020 [id number] 208 Pfizer, Inc (PFR) complet ed SARS-COV- 2 (COVID-19 ) vaccine, mRNA, spike protein, LNP, preservat teresa free, 30 mcg/0.3mL dose DoD COVID Vaccine Pfizer 2020 [id number] 208 PFIZER complet ed COVID Vaccine [facility] 07/14/21 Given Ambulat ory Pharmac y SARS-COV-2 (COVID-19) vaccine, mRNA, spike protein, LNP, preservative free, 30 mcg/0.3mL dose 1 2020 [id number] 208 Pfizer, Inc (PFR) complet ed SARS-COV- 2 (COVID-19 ) vaccine, mRNA, spike protein, LNP, preservat teresa free, 30 mcg/0.3mL dose DoD hepatitis A adult vaccine 2020 [id number] 52 GlaxoSmithKli pr complet ed hepatitis A adult vaccine 03/07/21 Given Ambulat ory Pharmac y hepatitis A vaccine, adult dosage 2 2020 [id number] 52 [facility] ([facility] ([facility]) complet ed hepatitis A vaccine, adult dosage DoD influenza, injectable, quadrivalent- pf 2019 [id number] 150 Seqirus complet ed influenza , injectabl e, quadrival ent-pf 09/04/20 Given Ambulat ory Pharmac y Influenza, injectable, quadrivalent, preservative free 1 2019 [id number] 150 Seqirus (SEQ) complet ed Influenza , injectabl e, quadrival ent, preservat teresa free [facility] adenovirus vaccine, live 2019 [id number] 143 Teva [employer] ls complet ed adenoviru s vaccine, live 07/25/20 Given Ambulat ory Pharmac y hepatitis A adult vaccine 2019 Body, whole [id number] 52 GlaxoSmithKli ne complet ed hepatitis A adult vaccine 07/25/20 Given Ambulat ory Pharmac y hepatitis A vaccine, adult dosage 1 2019 DONNA STRONG [id number] 52 [employer] ([place]) complet ed hepatitis A vaccine, adult dosage DoD Adenovirus, type 4 and type 7, live, oral 1 2019 [id number] 143 [facility] ([facility]) complet ed Adenoviru s, type 4 and type 7, live, oral DoD tetanus, diphtheria, acellular pertu is 2019 [id number] 115 GlaxoSmithKli ne complet ed tetanus, diphtheri a, acellular pertussis 07/19/20 Given Ambulat ory Pharmac y meningococcal A,C,Y,W-135 (MCV4P) 2019 [id number] 114 sanofi pasteur complet ed meningoco ccal [...] diphtheria toxoid conjugate vaccine (MCV4P) 1 2019 [id number] 114 Sanofi Pasteur (PMC) complet ed meningoco ccal polysacch aride (groups A, C, Y and W-135) diphtheri a toxoid conjugate vaccine (MCV4P) DoD tetanus toxoid, reduced diphtheria toxoid, and acellular pertu is vaccine, adsorbed 1 2019 [id number] 115 [employer] ([facility]) complet ed tetanus toxoid, reduced diphtheri [...] Prevention' s HIV diagnostic algorithm. Refer to [facility] Lab Guide for additional information : [email or web address] x Testing performed by [facility] [address] [place] [employer] EPILAB Miscellan eous Sendouts Repository Sample Received (01/26/24 1:30 PM) 01/25 N [address] [place] [employer] EPILAB Encounters Combined list of: 1) Encounters from Department of Veterans Affairs facilities going backup to the last 18 months, not all VA inpatient encounters are included; 2) Encounters from the Department of Defense facilities going backup to 280 months. Location Location Details Encounter Type Encounter Number Reason For Visit Attending Provider ADM Date DC Date Status Disposition Source [facility] [place] [address](Opt ometry Clinic [facility]) OUTPATIENT [id number] MANDY NATH 07/25 Released w/o Limitations [facility] [place] [address](O ptometr y Clinic [facility]) [place] [address](All ergy, [facility]) OUTPATIENT [id number] Notes Entered by: DONNA STRONG 25 Jul 2020 1443 ------- ------- ------- ------- -- MANUEL MARTINES 07/25 Released w/o Limitations [facility] [place] [address](A llergy, [facility]) [place] [address]([facility]) OUTPATIENT [id number] Notes Entered by: АННА PINZON 31 Jul 2020 1036 ------- ------- ------- ------- -- strep prophyl JAYDEN Poon 07/31 Released w/o Limitations [facility] [place] [address]([facility] d) [place] [address](AFN G [address]) OUTPATIENT [id number] Notes Entered by: SORAYA ROSA 15 Oct 2021 0858 ------- ------- ------- ------- -- CHERYL/SORAYA BANERJEE 10/15 Released w/o Limitations [facility] [place] [address](A FNG [address]) [place] [address](AFN G [address] Med Sq-FM) TELE CONSULT [id number] SORAYA ROSA 11/06 [facility] [place] [address](A FNG [address] Med Sq-FM) [place] [place] [address](AFN G [address] Med Sq-FM) OUTPATIENT [id number] Notes Entered by: SEPIDEH TSE 08 Jan 2022 1505 ------- ------- ------- ------- -- Post-CONNOR Franz 01/08 Released w/o Limitations [facility] [place] [place] [address](A FNG [address] Sq[address]FM) [place] [place] [address](AFN G [address] Med Sq-FM) OUTPATIENT [id number] Notes Entered by: SORAYA ROSA 06 Apr 2022 1410 ------- ------- ------- ------- -- HA3 SORAYA ROSA 04/06 Released w/o Limitations [facility] [place] [address](A FNG [address] Med Sq-FM) 8203R-104 MDG Mass Vaccine [id number] 08/28 Discharge Disposition: Home or Self Care 8203R-1 04 MDG 8203R-104 MDG Mass Vaccine [id number] 08/30 8203R-1 04 MDG Procedures Combined list of: 1) Procedures from Department of Veterans Affairs facilities going back up to thelast 18 months, not all VA non-surgical procedures are included; 2) All procedures from the Department of Defense facilities. Procedure Procedure Type Code Date Perfomer Comments Sourc e No data available for this section Ambulato ry Pharmacy Screening Test Of Visual Acuity, Quantitative, Bilateral Screening Test Of Visual Acuity, Quantitative, Bilateral [id number] MANDY NATH DoD Hepatitis A Vaccine Adult Dosage (Intramuscular Use) Hepatitis A Vaccine Adult Dosage (Intramuscular Use) 76724 DONNA STRONG Hep A (Adult); Series #: 1; 1.0 mL; IM; Unknown; Mfg: [employer]; Lot: [id number]; VIS given (Kendall: 05/22/2020). [facility] Immunization Administration One Vaccine Immunization Administration One Vaccine [address] Supervised Injection Intramuscular Supervised Injection Intramuscular [address] [facility] Social History Combined list of available smoking, tobacco, and other social history from Department of Defense and Veterans Affairs facilities. Social History Type Response Date Comment Sour e This section is an empty social history section. [facility] Assessment and Plan Combined list of future care activities from Department of Defense and Veterans Affairs facilities (e.g., assessment and plan notes, appointments, orders, and referrals). Additional future care activities may be listed in the Plan of Care section. Result Assessment and Plan Date Source Assessment and Plan No data available for this section 05/19/2025 Ambulatory Pharmacy Functional Status Combined list of recent functional and cognitive assessments recorded at [facility] of Defense and [facility] ([place] Functional [place] Measurement (FIM) Scale: 1 = Total Assistance (Subject = 0% +), 2 = Maximal Assistance (Subject = 25% +), 3 = Moderate Assistance (Subject = 50% +), 4 = Minimal Assistance (Subject = 75% +), 5 = Supervision, 6 = Modified [place] (Device), 7 = Complete [place] (Timely, Safely). Assessment Date/Time Source Assessment Type Assessment Skill Assessment Score Assessment Details No data available for this section
--- OUTSIDE RECORDS SUMMARY | 2025-05-19 14:40 | XMS_ITS | Clinical Summary ---
Author Organization [facility] Address [address] [place] [address] Phone Care Team Providers Care Wire Bender Name Role Phone Unavailable Primary Care Provider [...] 2002 04/29/2001, 05/26/1996, 09/25/1992, Additional history exists COVID-19 Vaccine ( season) 2024 Influenza Vaccines (#1) 2025 HIB Vaccines Completed 05/26/1992 MMR Vaccines Completed 01/24/1995, 05/26/1992 IPV Vaccines Completed 05/26/1996, 1210/1991, 1991, Additional history exists Hepatitis B Vaccines [...]
--- OUTSIDE RECORDS SUMMARY | 2025-05-19 14:40 | XMS_ITS | Patient Health Record ---
Author Organization [facility] Address [address] [place] [address] Support Name Relationship Address Phone TONYA BARRIENTOS Guarantor Unknown Reason For Referral No Information Medications Medication SIG (Take, Route, Fr equency, Duration) Notes Start Date End Date Status valACYclovir HCl 500MG 1 ORAL twice edwin y; Duration: -3 Farrukh-MJ 01/15/2012 Active Vitamins 1 ORAL daily; Duration: -3 Farrukh-MJ 01/14 Active Valtrex 500MG 2 ORAL daily; Duration: 90 Farrukh-MJ 2 Active Plan Of Treatment No Information Insurance Providers Payer Name Payer Address Payer Phone Subscriber Number Group Number Insured Name Patient Relationship to Insured Coverage Start Date Coverage End Date [facility] [address] [place] [address] [phone] [id number] TONYA DOUGHERTY Self - patient is the insured
== END 2025-05-19 14:39 | disposition home or self-care (01) ==
LOC: HO.US 14:38
PROVIDERS: PCP Family Medicine; Visit Provider Advanced Practice Midwife
DX: R10.2 Pelvic and perineal pain (principal)
CPT/HCPCS: 76830; 76856

== ENCOUNTER → 2025-05-19 14:40 | Outpatient (BNV) | payer OTHER, SELFPAY | PROVIDERS: PCP Family Medicine; Visit Provider Radiology Diagnostic Radiology | DX: D25.9 Leiomyoma of uterus, unspecified (principal) | CPT/HCPCS: 76830; 76856 ==